=== PATIENT | male | born 1945 | race Caucasian/White ===

== ENCOUNTER → 2016-07-26 | Outpatient (CLI) | payer MEDICARE, OTHER ==
[~2016-07-26] MED LIST: ACHYD1T PO; ASPI-624 PO; BETAPACE PO; CRAN500T PO; DCS100C PO; L. A1CAP7 PO; LVT.1T PO; NITR100C3 PO; PNT40TEC PO; PRAV80TA PO; TMSL.4C PO; TRZ50T PO; ZLP10T PO; [UNRECOGNIZED DRUG - CODE] PO
--- NOTE | 2016-07-26 13:26 | Diagnostic Imaging Report ---
INDICATION: Flank pain. History of renal calculi. COMPARISON: 07/24/2013 FINDINGS: Single frontal supine radiographic view of the abdomen was obtained. Multiple atherosclerotic calcifications are seen projecting over the superior poles of the bilateral kidneys consistent with nephrolithiasis. No calculi are seen along the expected course of either ureter. No other unexpected extra osseous calcifications or radiopaque foreign bodies are seen. Small bowel loops are nondistended. There is no large collection of free intraperitoneal air. Bony structures show no acute abnormalities. IMPRESSION: 1. Bilateral nephrolithiasis. 2. No unexpected radiopaque foreign bodies. Dictated by: Dictated on workstation # [id number]
--- NOTE | 2016-07-26 13:49 | Diagnostic Imaging Report ---
PROCEDURE: CT urinary tract, rule out kidney stone. TECHNIQUE: Multiple contiguous axial images were obtained through the abdomen and pelvis without the use of intravenous contrast. INDICATION: Bilateral flank pain. Hematuria. FINDINGS: The lung bases appear unremarkable. The liver demonstrates an 8 mm hypodense lesion near the IVC superiorly and posteriorly located within the liver, likely related to a tiny cyst. The gallbladder demonstrates a calcified stone and soft tissue thickening in the fundus, similar to 2014 exam, likely related to focal adenomyomatosis. The spleen is not enlarged. Stable low-density left adrenal nodule measuring 1.3 cm is likely an adenoma. The pancreas appears unremarkable for an unenhanced exam. Ectasia of the thoracolumbar aortic junction area is seen. There is prominent calcified plaque in the distal thoracic aorta. There is a nonobstructive stone seen measuring 7 mm and adjacent smaller stone noted in the mid right kidney. No ureteric or bladder stone. No left kidney stone. Hypoattenuation lesions noted in the kidneys are probably cysts. In the pelvis and left lower quadrant, there is significant inflammation around the sigmoid colon which demonstrates multiple diverticula compatible with diverticulitis. There is a 3 cm area of fluid collection seen in the sigmoid mesocolon with no internal air to suggest an abscess which may relate to edema and phlegmon. No pneumoperitoneum. No bowel obstruction. The appendix is normal. The osseous structures demonstrate degenerative changes in the lower lumbar spine and SI joints. IMPRESSION: 1. Sigmoid diverticulitis. There is a 3 cm area of edema and phlegmon in the sigmoid mesocolon. No definite abscess is seen at this time. Followup colonoscopy is recommended to rule out underlying neoplasm when the acute inflammation resolves. 2. Nonobstructive right kidney stones up to 7 mm in size. The findings were called and discussed with Dr. Redd at the time of dictation. Dictated by: Dictated on workstation # [id number]
== END ==
LOC: RAD 12:26
PROVIDERS: ATTEND Urology
DX: R10.9 Unspecified abdominal pain (principal); K80.20 Calculus of gallbladder without cholecystitis without obstruction; N20.0 Calculus of kidney
CPT/HCPCS: 74000; 74176